=== PATIENT | female | born 1970 | race Hispanic/Latino ===

== ENCOUNTER 2017-09-26 14:42 | Outpatient (CLI) | payer BC | END 2017-09-26 14:43 | disposition home or self-care (01) | LOC: BICMAMMO 14:42 | PROVIDERS: ATTEND Obstetrics & Gynecology | DX: Z12.31 Encounter for screening mammogram for malignant neoplasm of breast (principal); Z80.3 Family history of malignant neoplasm of breast | CPT/HCPCS: 77063; 77067 ==

== ENCOUNTER 2024-10-31 13:19 | Outpatient (CLI) | payer BC | END 2024-10-31 13:20 | disposition home or self-care (01) | LOC: ULT 13:19 | PROVIDERS: ATTEND Obstetrics & Gynecology | DX: R74.8 Abnormal levels of other serum enzymes (principal) | CPT/HCPCS: 76705 ==